=== PATIENT | male | born 1985 | race Caucasian/White ===

== ENCOUNTER 2022-08-12 09:23 | Day surgery (SDC) | payer OTHER, SELFPAY ==
[2022-08-06 10:24] VITALS: BMI 34.4
[2022-08-12 09:50] VITALS: BP 126/83; PULSE 79; RESP 18; TEMP 36.2; O2SAT 95
--- NOTE | 2022-08-12 10:14 | PC.NURSE ---
pt vasovagal with iv start pale, diaphoretic, hr 40's to 29 sbrady hob reclined, iv start #20 right hand. 2 other rn's Lianna & Cassy at bedside. anesthesiologist Prasanna Garcia present, eye chair hob flat to supine, ivf w.o. glycopyrrolate pulled/drawn up but pt with response of no lightheadedness, pink - cleaned & dried pt, changed clothing. with effect. vasovagal with iv start added to pt's hx.
[2022-08-12] MEDS: Lactated Ringers 1,000 ML 50 ML IVCONT (10:15)
--- NOTE | 2022-08-12 10:23 | PC.NURSE ---
hr 60's-70's bp 109/61
--- NOTE | 2022-08-12 11:27 | HO.ANESPROP2 ---
HPI - Anesthesia Eval Consult details Narrative: 37 yo male patient for Bilateral Eye muscle Lateral Rectus Recession, Inferior oblique PMFSH Active Problems Active Problems: MAYA. Uses CPAP Increased BMI Vasovagal with IV placement. HR to 20s Past Medical History Medical History (Updated 08/12/22 @ 12:19 by Daly Temple MD) History of COVID-19 Motion sickness Sleep apnea Vasovagal near syncope Family History Family history of problems with anesthesia: No Surgical History Surgical History (Updated 08/06/22 @ 10:24 by Lata Junior RN) Hx of left inguinal hernia repair Hx of wisdom tooth extraction History of Problems with Anesthesia: No Social History Social History (Updated 08/06/22 @ 10:06 by Lata Junior RN) Are you a primary rn coronary care unit to a significant other at home: No Do you presently have visiting nurse or other home services: No Patient Tobacco Use Status: Never used Tobacco Use of substances other than those prescribed or required for medical reasons: No Have you been hit, kicked, punched, or otherwise hurt by someone within the past year? If so, by whom?: No Are you DNR?: No Advance Directives: No Advance Directives Information Provided: Yes (brochure mailed) Advance Directives on File: No Recently lost weight without trying: No Eating poorly because of decreased appetite: No Nutrition Risks: No Nutritional Risk Poor oral hygiene: No Meds Allergies Allergy/AdvReac Type Severity Reaction Status Date / Time No Known Allergies Allergy Verified 08/11/22 08:43 Active Medications: Current Medications Lactated Ringer's (Lr) 1,000 mls @ 50 mls/hr IVCONT .Q20H MIGDALIA Last Admin: 08/12/22 10:15 Dose: 50 mls/hr Home Medications Medication Instructions Recorded Confirmed Last Taken Type meclizine 25 mg tablet 25 mg PO TID PRN Dizziness 08/06/22 08/06/22 Unknown History Exam Exam Date and Time: August 12, 2022 1127 Height,Weight and Vital Signs: Height 6 ft 5 in Weight 131.542 kg Last Vital Signs Temp 97.1 F 08/12/22 09:50 Pulse 79 08/12/22 09:50 Resp 18 08/12/22 09:50 BP 126/83 08/12/22 09:50 Pulse Ox 95 08/12/22 09:50 O2 Del Method 08/12/22 09:50 Airway Mallampati Class: III TM Dist: >3cm Neck ROM: Full Loose/Missing/Broken Teeth: Yes (Missing molars) Heart: RRR Lungs: CTAB Assessment and Plan Assessment Anesthesia Assessment: Anesthesia Plan Discussed and Chart Reviewed Final Anesthetic Review Family History of Problems with Anesthesia: No History of Problems with Anesthesia: No NPO: Yes ASA Class: III Final Preanesthetic Review: No Changes in Pt Med Stat, Meds/Allgs Chart Reviewed, Consent Obtained/Reviewed and Anes Risks/Benef Reviewed Patient Risk: Intermediate Procedure Risk: Low Assessment/Block/Sedation in SS: Assess/Block/Sedation-SS Anesthetic Plan Anesthetic Plan: GA Disposition: Standard PACU
[2022-08-12 12:55] VITALS: BP 121/74; PULSE 72; RESP 20; TEMP 36.5; O2SAT 97
[2022-08-12 13:00] VITALS: BP 123/75; PULSE 73; RESP 20; O2SAT 98
[2022-08-12 13:05] VITALS: BP 120/77; PULSE 59; RESP 16; O2SAT 98
[2022-08-12 13:10] VITALS: BP 121/74; PULSE 87; RESP 18; O2SAT 97
[2022-08-12 13:25] VITALS: BP 121/74; PULSE 73; RESP 16; TEMP 36.6; O2SAT 97
--- NOTE | 2022-08-12 14:35 | HO.OPHTHAL ---
Ophthalmology Operative Note Date of Service: 08/12/22 Narrative: Diagnosis exotropia. Procedure bilateral lateral rectus recessions of [address] Simpson. Anesthesia general. Complications none. The patient was brought to the operating room placed under general anesthesia. The patient's eyes were prepped and draped in the usual sterile ophthalmic fashion. A lid speculum was placed in the right eye and then incisions made at bare sclera in the inferotemporal fornix. The lateral rectus muscle was hooked and secured with a double-armed Vicryl suture. The muscle was then disinserted the globe and reattached to a position 6 mm behind the original insertion. Conjunctiva was closed with interrupted Vicryl sutures. An identical procedure was then performed on the left eye. The patient was then awoken from general anesthesia and discharged to postoperative recovery in good condition.
== END 2022-08-12 15:30 | disposition home or self-care (01) ==
PROVIDERS: PCP Physician Assistant Medical; Visit Provider Ophthalmology
PROC: (CPT 67311; principal; 2022-08-12 11:00)
DX: H53.2 Diplopia (principal); H50.10 Unspecified exotropia; H51.8 Other specified disorders of binocular movement; R55 Syncope and collapse; G47.33 Obstructive sleep apnea (adult) (pediatric); Z99.89 Dependence on other enabling machines and devices; Z79.899 Other long term (current) drug therapy; Z86.16 Personal history of COVID-19
CPT/HCPCS: 67311; C1713; J0131; J1100; J1885; J2250; J2405; J3010